=== PATIENT | female | born 1980 | race Caucasian/White ===

== ENCOUNTER 2017-01-29 12:26 | Emergency (ER) | payer OTHER ==
--- NOTE | ~2017-01-29 | CR63 ---
[facility] A Service of [facility] RADIOLOGY TEXT RESULTS PATIENT: MIGUE PEARSON LOCATION: [facility] : 78 UNIT #: [id number] AGE: [address]: Karina Higgins SEX: F ORDER DR: [id number] [facility] [address] [place], [place] [address] [id number] E MR#: [id number] Acc #: [id number] NAME: MIGUE PEARSON : 1980 SEX: F STUDY DATE/TIME: 01/29/2017 12:53 UNIT: [facility] ROOM: STUDY DESCRIPTION: CR Chest 2 View Attending Physician: Karina Higgins P.A.-C. Ordering Physician: Karina Higgins P.A.-C. Primary Care Physician: Paulo Ocasio Aprn MEDICAL IMAGING REPORT This report is preliminary unless electronic signature is present EXAM 2 views chest, 01/29/2017 HISTORY Cough. Short of air, vomiting, nausea, headaches, smoker 15 years, asthma. FINDINGS PA and lateral radiographs of the chest are presented. Comparison 12/15/2013. The bony structures are unremarkable. Status post cholecystectomy. Heart normal in size. Lung volumes lower than on prior examination. Ill-defined patchy and linear densities left lung base posteriorly. Some component of atelectasis may be present. Appearance raises concern for mild left basilar pneumonia. No dense airspace disease. Followup to complete resolution recommended. Remainder of lungs clear. No pleural effusion or pneumothorax. No suspicious nodule. Dictated by... Danny Ferris M.D. THIS IS AN ELECTRONICALLY VERIFIED REPORT Danny Ferris M.D. at 01/30/2017 12:31 PM Joss TD: 01/29/2017 15:15 JOB #: [id number] MEDICAL IMAGING REPORT COPY
--- NOTE | ~2017-01-29 | CT2 ---
[facility] A Service of [facility] RADIOLOGY TEXT RESULTS PATIENT: MIGUE PEARSON LOCATION: [facility] : 78 UNIT #: [id number] AGE: [address]: Karina Higgins SEX: F ORDER DR: [id number] [facility] [address] [place], [place] [address] [id number] E MR#: [id number] Acc #: [id number] NAME: MIGUE PEARSON : 1980 SEX: F STUDY DATE/TIME: 01/29/2017 13:26 UNIT: [facility] ROOM: STUDY DESCRIPTION: CT Abd and Pelv W Cont Attending Physician: Karina Higgins P.A.-C. Ordering Physician: Karina Higgins P.A.-C. Primary Care Physician: Paulo Ocasio Aprn MEDICAL IMAGING REPORT This report is preliminary unless electronic signature is present EXAM CT of the abdomen and pelvis with contrast INDICATIONS Left lower quadrant pain for 2 days. Patient had a history of diverticulitis. She also had nausea and vomiting. TECHNIQUE Axial CT images were obtained from dome of the diaphragm through the symphysis pubis following administration of intravenous contrast material. FINDINGS Images through the lung bases demonstrate some bibasilar scarring, similar findings were present on prior exam from January 2015. Patient is suspected to have diffuse hepatic steatosis. Gallbladder is surgically absent. Spleen is within normal limits as are the stomach and proximal small bowel. Adrenal glands and pancreas are normal. Kidneys are normal in appearance. There is no free fluid or adenopathy seen within the abdomen. There is no evidence of mechanical bowel obstruction. Appendix is visualized and is within normal limits. Patient has a right ovarian cyst measuring up to 2.8 x 2.6 cm as well as a left ovarian cyst measuring up to 2.9 x 2.4 cm. Uterus is normal in appearance. I do not see any free fluid within the pelvis. Urinary bladder appears unremarkable. This patient does have colonic diverticulosis, but I do not see any convincing evidence of diverticulitis on today's study. Certainly there is no extraluminal gas or fluid to suggest perforation with abscess formation. Review of bony windows does not demonstrate any aggressive osseous abnormalities. IMPRESSION [facility] A Service of [facility] RADIOLOGY TEXT RESULTS PATIENT: MIGUE PEARSON LOCATION: [facility] : 78 UNIT #: [id number] AGE: [address]: Karina Higgins SEX: F ORDER DR: 1. The patient has diverticulosis without evidence of diverticulitis. 2. Bilateral ovarian cysts. 3. Suspected diffuse hepatic steatosis. Dictated by... Amanda Khalil M.D. THIS IS AN ELECTRONICALLY VERIFIED REPORT Amanda Khalil M.D. at 01/30/2017 1:34 PM AFF/to TD: 01/29/2017 15:49 JOB #: [id number] MEDICAL IMAGING REPORT COPY
[2017-01-29 12:03] LABS: INFLUENZA A NEG (NEG); INFLUENZA B NEG (NEG)
[2017-01-29 12:21] LABS: BASOPHIL% 0.3 % (0-2.5); EOSINOPHIL# 0.1 X10e3 (0-0.7); EOSINOPHIL% 0.9 % (0.0-7.0); HEMATOCRIT 47.2 % (35.0-45.0); HEMOGLOBIN 15.7 gm/dL (12.0-16.0); LYMPHOCYTE# 0.5 X10e3 (1.0-3.5); MEAN CORPUSCULAR HEMOGLOBIN 29.7 PG (28-34); MEAN CORPUSCULAR HGB CONC 33.4 g/dL (30-36); MEAN PLATELET VOLUME 7.7 FL (6.5-11.5); MONOCYTE# 0.8 X10e3 (0-1.0); MONOCYTE% 7.3 % (3.0-12.0); NEUTROPHIL# 10.1 X10e3 (1.5-7.1); NEUTROPHIL% 87.5 % (40-75); PLATELET COUNT 208 X10e3 (140-420); RED CELL DISTRIBUTION WIDTH 14.2 % (11.0-15.5); WHITE BLOOD COUNT 11.5 X10e3 (4.0-10.5)
[2017-01-29 12:25] LABS: DIFF IND NO
[~2017-01-29 12:26] MED LIST: ALBUTEROL17 GM INH; AMOXICILLIN500 M1 PO; BACTRIM DS TABL1 TA1 PO; BENZONATATE PO; CYMBALTA PO; HYDROCODON-ACE1 EAC1 PO; KLONOPIN1 MG PO; LEVAQUIN750 MG PO; LYRICA PO; MEDROL DOSEPAK4 MG PO; PERCOCET 5/321 UDTAB PO; VICODIN 5/1 TAB 5/50 PO; Z-PACK; ZITHROMAX1 G/PKT PO; ZOFRANODT PO
[2017-01-29 12:58] LABS: BLOOD UREA NITROGEN 8 mg/dL (9-23); CALCIUM SERUM 8.7 mg/dL (8.4-10.2); CARBON DIOXIDE 27 mmol/L (22-31); CHLORIDE 98 mmol/L (100-111); CREATININE SERUM 0.8 mg/dL (0.6-1.4); GLOM FILT RATE Estimated ABOVE60 mL/min (>60); GLUCOSE FASTING 116 mg/dL (70-110); POTASSIUM 3.7 mmol/L (3.5-5.1); SODIUM 137 mmol/L (135-145)
== END 2017-01-29 14:40 | disposition home or self-care (01) ==
LOC: CFTX 12:26
PROVIDERS: Physician Assistant
DX: J18.9 Pneumonia, unspecified organism (principal); N83.201 Unspecified ovarian cyst, right side; N83.202 Unspecified ovarian cyst, left side; F31.9 Bipolar disorder, unspecified; F17.210 Nicotine dependence, cigarettes, uncomplicated
CPT/HCPCS: 36415; 71020; 74177; 80048; 84703; 85025; 87651; 87804; 87880; 96361; 96365; 96375; 99284; J0696; J1100; J1885; J2405; J2765; Q9967

== ENCOUNTER 2017-05-05 13:07 | Emergency (ER) | payer OTHER ==
--- NOTE | ~2017-05-05 | EKG ---
PATIENT: MIGUE PEARSON UNIT #: [id number] Ventricular Rate: 77 BPM Atrial Rate: 77 BPM P-R Interval: 128 ms QRS Duration: 80 ms Q-T Interval: 414 ms QTC Calculation(Bezet): 468 ms P [place]: 29 degrees Calculated R [place]: -8 degrees Calculated T [place]: 31 degrees Diagnosis Line: Normal sinus rhythm Diagnosis Line: Possible Left atrial enlargement Diagnosis Line: Borderline ECG Diagnosis Line: Diagnosis Line: Confirmed by JOSE RAMIREZ MD ([id number]) on Diagnosis Line: 05/05/2017 10:52:54 PM INTERPRETING MD: JAIME
--- NOTE | ~2017-05-05 | CR72 ---
[facility] A Service of [facility] RADIOLOGY TEXT RESULTS PATIENT: MIGUE PEARSON LOCATION: [facility] : 78 UNIT #: [id number] AGE: [address]: Bijan Roth MD SEX: F ORDER DR: [id number] [facility] [address] [place], [place] [address] [id number] E MR#: [id number] Acc #: [id number] NAME: MIGUE PEARSON : 1980 SEX: F STUDY DATE/TIME: UNIT: [facility] ROOM: STUDY DESCRIPTION: CR Chest Single View Portable Attending Physician: Bijan Roth M.D. Ordering Physician: Bijan Roth M.D. Primary Care Physician: Paulo Ocasio Aprn MEDICAL IMAGING REPORT This report is preliminary unless electronic signature is present EXAM Chest portable 05/05/2017 1352 hours HISTORY 37-year-old woman complaining midsternal chest pain radiating to her jaw with shortness of air today. History of pneumonia 1 month ago. COMPARISON Chest x-ray 01/29/2017 FINDINGS Single upright view of the chest demonstrates normal cardiac, mediastinal and hilar contours. The lungs are well expanded and clear. There is no effusion, pneumothorax or bone lesion. IMPRESSION Normal upright portable chest. Dictated by... Rubina Cerrato M.D. THIS IS AN ELECTRONICALLY VERIFIED REPORT Rubina Cerrato M.D. at 05/05/2017 5:38 PM SMM/farrukh TD: 05/05/2017 15:31 JOB #: [id number] MEDICAL IMAGING REPORT Page 1 of 1 COPY
[2017-05-05 14:36] LABS: BASOPHIL# 0.1 X10e3 (0-0.3); BASOPHIL% 0.5 % (0-2.5); EOSINOPHIL# 0.2 X10e3 (0-0.7); EOSINOPHIL% 1.2 % (0.0-7.0); HEMATOCRIT 46.4 % (35.0-45.0); HEMOGLOBIN 15.6 gm/dL (12.0-16.0); LYMPHOCYTE# 2.1 X10e3 (1.0-3.5); LYMPHOCYTE% 15.4 % (17.0-45.0); MEAN CELL VOLUME 88.2 FL (83-96); MEAN CORPUSCULAR HEMOGLOBIN 29.7 PG (28-34); MEAN CORPUSCULAR HGB CONC 33.6 g/dL (30-36); MEAN PLATELET VOLUME 7.9 FL (6.5-11.5); MONOCYTE# 0.9 X10e3 (0-1.0); MONOCYTE% 6.7 % (3.0-12.0); NEUTROPHIL# 10.3 X10e3 (1.5-7.1); NEUTROPHIL% 76.2 % (40-75); PLATELET COUNT 256 X10e3 (140-420); RED BLOOD COUNT 5.26 X10e (3.90-5.30); RED CELL DISTRIBUTION WIDTH 13.7 % (11.0-15.5); WHITE BLOOD COUNT 13.5 X10e3 (4.0-10.5)
[2017-05-05 14:39] LABS: DIFF IND NO
[2017-05-05 14:41] LABS: POC - CKMB <1.0 ng/mL (0.0-7.9); POC - TROPONIN <0.05 ng/mL (<=0.05)
[2017-05-05 14:56] LABS: BILIRUBIN, DIRECT 0.1 mg/dL (0.0-0.2); BILIRUBIN,INDIRECT 0.7 mg/dL (0.0-0.9); BILIRUBIN,TOTAL 0.8 mg/dL (0.2-2.0); CALCIUM SERUM 8.4 mg/dL (8.4-10.2); CREATININE SERUM 0.8 mg/dL (0.6-1.4); GLOM FILT RATE Estimated 93.6 mL/min (>60); POTASSIUM 3.3 mmol/L (3.5-5.1); PROTEIN TOTAL SERUM 7.4 g/dL (6.0-8.3)
[2017-05-05 17:20] LABS: POC - CKMB <1.0 ng/mL (0.0-7.9); POC - TROPONIN <0.05 ng/mL (<=0.05)
== END 2017-05-05 17:48 | disposition home or self-care (01) ==
LOC: CED 13:07
PROVIDERS: Emergency Medicine
DX: R07.89 Other chest pain (principal); J45.909 Unspecified asthma, uncomplicated; Z90.49 Acquired absence of other specified parts of digestive tract; F17.200 Nicotine dependence, unspecified, uncomplicated
CPT/HCPCS: 36415; 71010; 80048; 80076; 82553; 84484; 85025; 93005; 99284